=== PATIENT | male | born 1955 | race Caucasian/White ===

== ENCOUNTER 2017-04-10 06:00 | Day surgery (SDC) | payer BC ==
[~2017-04-10] VITALS: Ht 185.4 cm; Wt 117.3 kg
--- NOTE | ~2017-04-10 | OR ---
PATIENT'S NAME: PATRICK PECK [facility] AGE: 61 Y [address] ROOM: [place] [id number] [place] [facility] [place]: 04/10/2017 OR/Procedure Report DISCHARGE DATE: 04/10/2017 FAMILY PHYSICIAN: Magnus Velásquez MD ATTENDING PHYSICIAN: Won Krishnamurthy SURGEON: Won Krishnamurthy MD [facility] COACH: Sorin Kasper PA-C. DATE OF PROCEDURE: 04/10/2017 PREOPERATIVE DIAGNOSES: 1. Right end-stage ankle primary osteoarthritis. 2. Gastrocnemius equinus/shortened Achilles tendon. POSTOPERATIVE DIAGNOSES: 1. Right end-stage ankle primary osteoarthritis. 2. Gastrocnemius equinus/shortened Achilles tendon. PROCEDURES: 1. Right ankle fusion. 2. Gastrocnemius recession procedure. 3. Use of intraoperative fluoroscopy, less than 1 hour. 4. Placement of short-leg splint intraoperatively. ANESTHESIA: General endotracheal anesthesia with peripheral nerve blocks. FLUIDS: See Anesthesia report. ESTIMATED BLOOD LOSS: Minimal. TOURNIQUET: Right proximal thigh 250 mmHg. SPECIMEN: None. COMPLICATIONS: None. DISPOSITION: Stable in PACU. COUNTS: All counts were correct. IMPLANTS: Synthes 7.3 mm partially threaded and cannulated screw system x3. INDICATIONS: Mr. Peck is a pleasant 61-year-old gentleman who underwent the noted procedures above. The risks, benefits, and alternatives of pursuing the surgical intervention were discussed with the patient in detail. He elected to proceed with surgery as noted above. Anesthesia was consulted for PATIENT'S NAME: PATRICK PECK [facility] AGE: 61 Y [address] ROOM: [place] [id number] [place] [facility] [place]: 04/10/2017 OR/Procedure Report DISCHARGE DATE: 04/10/2017 FAMILY PHYSICIAN: Magnus Velásquez MD ATTENDING PHYSICIAN: Won Krishnamurthy their perioperative evaluation of the patient. I marked the patient's right lower extremity indicating correct surgical site. DESCRIPTION OF PROCEDURE: The patient was brought from the holding area to the operative room. A time-out was performed. General endotracheal anesthesia was administered. The right lower extremity was prepped and draped in a sterile fashion. Perioperative antibiotics were administered for prophylaxis. An Esmarch was used to exsanguinate the limb. The tourniquet was inflated to 250 mmHg at the thigh. I began with the gastrocnemius recession procedure. A 15-blade knife was used at the medial aspect of the leg proximally and incised through skin, subcutaneous tissue, and muscle fascia down to the gastrocnemius aponeurosis. I performed a gastrocnemius recession procedure and achieved improved dorsiflexion of the ankle. The wound was then copiously irrigated and closed in layers. I then turned my attention to the lateral aspect of the ankle. I introduced intraoperative fluoroscopy. I identified the position of the fibula. The ankle was severely degenerated with valgus deformity. Using a 15-blade knife, I made a transfibular incision through skin, subcutaneous tissue, muscle fascia down to bone. Using oscillating saw, I osteotomized the fibula, subsequently removed it, and had my assistant gm of content & delivery morselized it for use of bone graft later on. This approach allowed me access to the ankle joint from a lateral approach. I identified the ankle joint. There was intrinsic valgus deformity present. Using a curved quarter-inch osteotome, followed by rongeur and curette, I removed any excess cartilage in the joint space. I then used a jonnie to recontour the talar dome and tibial plafond. Using a 0.062 K-wire, I drilled holes to allow for bleeding into the subchondral plate at the talar dome and tibial plafond. Autogenous fibula bone graft was placed at the fusion site at the level of the ankle. With my assistant gm of content & delivery, Sorin Kasper PA-C, holding the ankle in neutral dorsiflexion and applying compression, I placed 3 pins to stabilize the fusion. The pin position was confirmed fluoroscopically. I measured, subsequently drilled, and placed 3 Synthes 7.3 mm partially threaded and cannulated screws. They were all tightened in sequence. I achieved good compression at the fusion site. I then packed residual bone graft around the fusion site. The fusion was stable. I fluoroscopically confirmed 3 well placed partially threaded and cannulated screws with good compression noted at PATIENT'S NAME: PATRICK PECK [facility] AGE: 61 Y [address] ROOM: [place] [id number] [place] [facility] [place]: 04/10/2017 OR/Procedure Report DISCHARGE DATE: 04/10/2017 FAMILY PHYSICIAN: Magnus Velásquez MD ATTENDING PHYSICIAN: Won Krishnamurthy the fusion site. The wound was then copiously irrigated and closed in layers beginning with 0 Vicryl suture followed by 2-0 Vicryl suture and uzair to approximate the skin. The tourniquet was then let down and the toes reperfused. The patient was then placed into a well-padded short-leg splint with the ankle in neutral dorsiflexion. The patient was then transferred to the operating room table onto the stretcher and extubated. He was brought to the recovery room in stable condition. There were no intraoperative complications noted. Of note, my PA, Sorin Kasper PA-C, played an integral role in the intraoperative care of this patient. This included preoperative positioning, intraoperative expert retraction, and closing and splinting functions. IMPRESSION: The patient is status post the noted procedures above. PLAN: The patient will be nonweightbearing on the right lower extremity in a splint. Postoperative pain control in the form of Percocet and IV morphine as needed for pain. He also has peripheral nerve blocks that were placed by Anesthesia. He will be instructed to rest, ice, and elevate the leg going forward. DVT prophylaxis will begin on postoperative day #1. He will be discharged home from the PACU, provided he meets the PACU discharge criteria. He will follow up in my office in 2 weeks for first postoperative visit. Again, strict nonweightbearing on the right lower extremity. MD MAXIMILIAN GARCIA/tyron /[id number] d: 04/10/174 t: 04/11/17 0720, OPERATIVE SUMMARY
[~2017-04-10 06:00] MED LIST: ALEVE220 MG PO; AVAPRO300 MG PO; CORDARONE,PACE200 MG PO; CPAP; CYMBALTA60 MG PO; DITROPAN5 MG PO; ELIQUIS5 MG PO; EXCEDRIN EXTRA1 TAB PO; FEOSOL325 MG PO; HYDROCHLOROTHIA25 MG PO; PROTONIX40 MG PO; RYTHMOL225 M1 PO; TOPROL XL100 MG PO; TYLENOL ARTHRI650 MG PO; TYLENOL EXTRA500 MG PO; TYLENOL PM PO; ULTRAM50 MG PO; XARELTO20 MG PO; ZANTAC (NON-FO150 MG PO
[2017-04-10] MEDS ORDERED: OXYGEN M-15 INH (06:56)
[2017-04-10] MEDS ORDERED: PERCOCET 5-3251 EACH PO (11:21)
== END 2017-04-10 13:20 | disposition disaster alternative care site (69) ==
LOC: GSDC 06:00 → GPOC 09:00 → GSDC 13:20
PROC: 0SGF07Z Fusion of Right Ankle Joint with Autologous Tissue Substitute, Open Approach (ICD-10-PCS; principal; 2017-04-10)
PROC: 0L8N0ZZ Division of Right Lower Leg Tendon, Open Approach (ICD-10-PCS; 2017-04-10)
DX: M67.01 Short Achilles tendon (acquired), right ankle (principal); M19.072 Primary osteoarthritis, left ankle and foot; I10 Essential (primary) hypertension; I48.1 Persistent atrial fibrillation; M48.00 Spinal stenosis, site unspecified; I34.0 Nonrheumatic mitral (valve) insufficiency; Z98.890 Other specified postprocedural states; Z79.891 Long term (current) use of opiate analgesic; Z79.899 Other long term (current) drug therapy
CPT/HCPCS: C1713; J0131; J0690; J1100; J1885; J2001; J2250; J2405; J7120